=== PATIENT | female | born 1950 | race African-American/Black ===

== ENCOUNTER 2017-03-13 08:21 | Inpatient (IN) ==
--- NOTE | 2017-03-09 14:13 | EKG Report ---
Test Performed on : 03/09/2017 2:01:58 PM Test Reason : pat Blood Pressure : / mmHG Vent. Rate : 096 BPM Atrial Rate : 096 BPM P-R Int : 138 ms QRS Dur : 082 ms QT Int : 368 ms P-R-T Axes : 043 -10 043 degrees QTc Int : 464 ms Normal sinus rhythm. Normal ECG No previous ECGs available Confirmed by Donell Sequeira MD ([id number]) on 03/09/2017 8:00:07 PM
[2017-03-09 15:38] LABS: HEMATOCRIT 27.2 % (37.0-47.0); HEMOGLOBIN 8.3 g/dL (12.0-16.0); MCH 25.2 PG (27-31); MCHC 30.5 g/dL (33-37); MCV 82.4 FL (81-99); MPV 9.9 FL (7.4-10.4); RBC 3.3 XMIL (4.2-5.4)
[2017-03-09 15:51] LABS: INR 1.05; PROTIME 11.1 Seconds (9.2-11.7); PTT 29.8 Seconds (22.0-36.0)
[2017-03-09 16:25] LABS: AGAP 15; BUN 10 mg/dL (8-22); CALCIUM 9.2 mg/dL (8.8-10.2); CHLORIDE 103 mmol/L (98-107); COSMO 281; POTASSIUM 3.3 mmol/L (3.5-5.1); SODIUM 142 mmol/L (136-145); TCO2 24 mmol/L (25-35)
[2017-03-13] MEDS ORDERED: PEPCID ONE (09:08)
[2017-03-13] MEDS ORDERED: KEFZOL 1 GM/D5W 1 GM/50 ML IVPB ONE (09:09)
[2017-03-13] MEDS ORDERED: REGLAN ONE (09:09)
[2017-03-13] MEDS ORDERED: LR 1,000 ML ONE ×2 (09:09→09:48)
[2017-03-13 11:31] LABS: URINE MICRO REVIEW NEEDED? NO; URINE SOURCE CATH
[2017-03-13 11:37] LABS: BILIRUBIN URINE NEGATIVE (NEGATIVE); BLOOD URINE NEGATIVE (NEGATIVE); COLOR YELLOW; GLUCOSE URINE NEGATIVE (NEGATIVE); LEUKOCYTES URINE NEGATIVE (NEGATIVE); NITRITE URINE NEGATIVE (NEGATIVE); PH URINE 7.5; PROTEIN URINE NEGATIVE (NEGATIVE); SP GRAVITY URINE 1.014; TURBIDITY URINE CLEAR (CLEAR); UROBILINOGEN URINE NORMAL (NORMAL)
[2017-03-13 11:39] LABS: UR EPITHELIAL CELLS <10 /HPF (<10); URINE BACTERIA NEGATIVE /HPF; URINE RBC <10 /HPF (<10); URINE WBC <10 /HPF (<10)
[2017-03-13] MEDS ORDERED: FENTANYL ONE (13:52)
[2017-03-13] MEDS ORDERED: VERSED ONE (13:53)
[2017-03-13] MEDS ORDERED: DIPRIVAN 1% ONE (13:54)
[2017-03-13] MEDS: MORPHINE ONE ×2 (14:00→14:22)
[2017-03-13] MEDS ORDERED: MORPHINE ONE ×2 (14:06→14:20)
[2017-03-13] MEDS ORDERED: NS 1,000 ML ONE (14:15)
[2017-03-13] MEDS ORDERED: PHENERGAN PO PRN (14:24)
[2017-03-13] MEDS ORDERED: PHENERGAN PR PRN (14:24)
[2017-03-13] MEDS ORDERED: B & O 15A SUPP PR PRN (14:24)
[2017-03-13] MEDS ORDERED: KEFZOL 1 GM/D5W 1 GM/50 ML IVPB IV SCH (14:24)
[2017-03-13] MEDS ORDERED: DITROPAN PO PRN (14:24)
[2017-03-13] MEDS ORDERED: LABETALOL IV PRN (14:24)
[2017-03-13] MEDS ORDERED: SODIUM CHLORIDE 0.9% INJ PRN (14:24)
[2017-03-13] MEDS ORDERED: BENADRYL LIQUID PO PRN (14:24)
[2017-03-13] MEDS ORDERED: ZOFRAN IV PRN (14:24)
[2017-03-13] MEDS ORDERED: PHENERGAN IV PRN (14:24)
[2017-03-13] MEDS ORDERED: TYLENOL PO PRN (14:24)
[2017-03-13] MEDS ORDERED: BENADRYL IV PRN (14:24)
[2017-03-13] MEDS ORDERED: NEOSTIGMINE ONE (14:28)
[2017-03-13] MEDS ORDERED: ZOFRAN ONE (14:28)
[2017-03-13] MEDS ORDERED: XYLOCAINE-MPF 2% ONE (14:29)
[2017-03-13] MEDS ORDERED: ROBINUL ONE (14:29)
[2017-03-13] MEDS ORDERED: DECADRON ONE (14:29)
[2017-03-13] MEDS ORDERED: STERILE WATER INJ. ONE (14:29)
[2017-03-13] MEDS ORDERED: QUELICIN (DOSE) ONE (14:29)
[2017-03-13] MEDS ORDERED: LR 2,000 ML ONE (14:29)
[2017-03-13] MEDS ORDERED: NORCURON ONE (14:29)
[2017-03-13] MEDS ORDERED: OFIRMEV 1000 MG/ISOTONIC SOLN 1,000 MG/100 ML BOTTLE ONE (14:29)
[2017-03-13] MEDS: MORPHINE IV PRN ×2 (16:11→21:35)
[2017-03-13] MEDS: NS 1,000 ML IV SCH (16:34)
[2017-03-13] MEDS: KEFZOL 1 GM/D5W 1 GM/50 ML IVPB IV SCH (19:44)
[2017-03-13] MEDS: PERIDEX MT SCH (21:38)
[2017-03-13] MEDS: COLACE PO SCH (21:38)
[2017-03-14] MEDS: NS 1,000 ML IV SCH ×2 (02:03→09:41)
[2017-03-14] MEDS: KEFZOL 1 GM/D5W 1 GM/50 ML IVPB IV SCH (02:06)
[2017-03-14] MEDS: NORCO-7.5 PO PRN ×2 (02:06→04:44)
[2017-03-14 05:57] LABS: HEMATOCRIT 25.4 % (37.0-47.0); HEMOGLOBIN 7.7 g/dL (12.0-16.0); MCH 25.2 PG (27-31); MCHC 30.3 g/dL (33-37); MCV 83.3 FL (81-99); MPV 9.9 FL (7.4-10.4); RBC 3.05 XMIL (4.2-5.4)
[2017-03-14 06:05] LABS: AGAP 12; BUN 8 mg/dL (8-22); CALCIUM 8.3 mg/dL (8.8-10.2); CHLORIDE 105 mmol/L (98-107); COSMO 283; POTASSIUM 3.8 mmol/L (3.5-5.1); SODIUM 142 mmol/L (136-145); TCO2 25 mmol/L (25-35)
[2017-03-14] MEDS ORDERED: HUMULIN R SUBQ SCH (07:00)
[2017-03-14 07:28] VITALS: BP 154/71
[2017-03-14] MEDS ORDERED: ALPHAGAN 0.2% OPHTH SOLN BOTH EYES SCH (09:00)
[2017-03-14] MEDS ORDERED: CRESTOR PO SCH (09:00)
[2017-03-14] MEDS ORDERED: GLUCOPHAGE PO SCH (09:00)
[2017-03-14] MEDS: PERIDEX MT SCH (09:41)
--- NOTE | 2017-03-14 09:54 | PROGRESS NOTE ---
DATE: 03/14/2017 SUBJECTIVE: Ms. Dunham reports a good night overnight. She had some discomfort, but it is controlled with pain medications. OBJECTIVE: Vital Signs: Temperature 98.7 degrees, pulse 67, blood pressure 154/71. There was recorded urine output of 3 liters. General: No acute distress. Abdomen: Appropriately tender. Not distended. The incisions are clean, dry, and intact and all port sites and infraumbilical incision. Genitourinary: Bladder is nontender to palpation. PERTINENT LABS: White cell count of 5000, hematocrit 25. Creatinine of 1. ASSESSMENT AND PLAN: A 67-year-old female with a very large renal masses, status post right robotic nephrectomy. She is doing well. She was educated on postoperative care and was cleared for discharge by me. 1. Discharge home once she voids and ambulates. 2. Home with prescriptions for [place] 7.5 (number 25). 3. I will see her in the clinic in 1 week to review pathology results and check her wound. cc: Mario Parekh MD
[2017-03-14] MEDS: COLACE PO SCH (09:56)
[2017-03-14] MEDS ORDERED: XALATAN 0.005% OPH SOLN BOTH EYES SCH (21:00)
--- NOTE | 2017-03-15 21:46 | OPERATIVE NOTE ---
PROCEDURE DATE: 03/13/2017 SURGEON: Mario Parekh MD PREOPERATIVE DIAGNOSIS: Large right renal mass. PRIMARY PROCEDURES: Right robotic assisted laparoscopic nephrectomy. INDICATIONS: A 67-year-old female who presented with abdominal pain and had imaging performed revealing a 15 cm solid enhancing renal mass concerning for malignancy. She presents for definitive intervention. FINDINGS: Extremely large and vascular collateral structures, adequate hemostasis at conclusion of the case. OPERATION IN DETAIL: After obtaining informed consent, patient was brought to the operating room. Perioperative antibiotics and general endotracheal anesthesia were administered. She was placed in modified right flank position with upper and lower extremities appropriately padded. A 16- German Berger catheter was introduced and the bladder was drained. She was prepped and draped sterile fashion. We made a small stab incision in her umbilicus with a 15 blade and I introduced Veress needle connected to saline-filled syringe. Positive drop test was confirmed and aspiration of fluid in syringe revealed no evidence of GI contents or blood. We then insufflated her abdomen to 15 mmHg peritoneal pressure. Following that, we marked our trocar sites in the standard nephrectomy fashion. Bovie electrocautery was used to incise the skin. Camera trocar was introduced and abdominal cavity was examined. She did not have evidence of significant abdominal adhesions and the rest of the trocars were placed under direct vision. We then docked the robot after she was turned in a more of a proper flank position. We began by identifying ascending colon and incising white line of Toldt, though it was very distorted secondary to the huge mass. The colon was reflected medially exposing duodenum, which was also reflected. At that point, inferior vena cava was visualized. I began by trying to dissect around the lower pole of the kidney. There was a large number of very big collateral vessels with some of them draining directly into the vena cava. Those were carefully cauterized with bipolar electrocautery. The lower pole of the kidney was mobilized. The right ureter was seen. We then placed the kidney on anterior traction and dissected toward the hilum. I eventually was able to visualize the right renal vein and right renal artery behind it. A vessel loop was placed around the right renal vein. We then used Endo TRISTON stapler with a vascular load to control the renal vein, followed by another vascular load to control the renal artery. Subsequent to that, the kidney was lifted yet a bit more anteriorly and dissection continued towards the superior pole. Once again, a larger number of collateral vessels was seen. Hence, dissection had to be done meticulously. We freed the kidney up then superiorly and it was finally freed. I spared the adrenal gland, as the mass was mainly involving the lower pole. Plus, with the size and vascularity of the collateral circulation, I was concerned about bleeding in the adrenal area. We then decreased pneumoperitoneal pressure around the hilar area as well as in the general operative field there was no evidence of active bleeding. The robot was undocked and infraumbilical certified pharmacist assistant trocar port was extended toward the pubis. Given the size of the mass and the incision ended up being approximately 12 cm. Dissection extended up the subcutaneous tissue, fascia and eventually through peritoneum. The mass was removed and submitted to Pathology for examination. We then copiously irrigated the wound. #2 PDS looped suture was used to close the fascia in a running fashion. This was followed by irrigation of the wound. 0 Vicryl suture was used for subcutaneous tissues. 4-0 Monocryl suture was used for subcuticular closure of the infraumbilical incision as well as the trocar sites. Dermabond skin adhesive was then applied over the incisions. She was extubated and taken to PACU for further recovery. ESTIMATED BLOOD LOSS: 200 mL. COMPLICATIONS: None. DISPOSITION: To PACU and subsequently floor for observation with Berger catheter to gravity drainage. cc: Mario Parekh MD
== END 2017-03-14 10:28 | disposition home or self-care (01) ==
LOC: 4N 08:21 → OPS 08:21 → EDSTATUS 11:00 → OBSVTOIN 14:49
PROVIDERS: ADMIT Urology; ATTEND Urology

== ENCOUNTER 2019-12-07 09:55 | Inpatient (IN) ==
--- NOTE | 2019-12-01 11:03 | EKG Report ---
Test Performed on : 12/01/2019 10:58:08 AM Test Reason : pat Blood Pressure : / mmHG Vent. Rate : 090 BPM Atrial Rate : 090 BPM P-R Int : 136 ms QRS Dur : 074 ms QT Int : 348 ms P-R-T Axes : 044 -31 050 degrees QTc Int : 425 ms Normal sinus rhythm. Left axis deviation Abnormal ECG When compared with ECG of 09-MAR-2017 14:01, No significant change was found Confirmed by Sánchez KUHN, Mau Fenton ([id number]) on 12/01/2019 2:36:20 PM
[2019-12-01 11:14] LABS: HEMATOCRIT 30.7 % (37.0-47.0); HEMOGLOBIN 9.3 g/dL (12.0-16.0); MCH 25.5 PG (27-31); MCHC 30.3 g/dL (33-37); MCV 84.1 FL (81-99); MPV 9.8 FL (7.4-10.4); RBC 3.65 XMIL (4.2-5.4); RDW 17.8 % (11.5-14.5); WBC 6.65 X1000 (4.8-10.8)
[2019-12-01 12:00] LABS: BUN 30 mg/dL (8-22); ESTIMATED GFR > 60; GLUCOSE 207 mg/dL (70-104); TCO2 25 mmol/L (25-35)
[2019-12-01 12:08] LABS: CHLORIDE 106 mmol/L (98-107); POTASSIUM 4.4 mmol/L (3.5-5.1); SODIUM 142 mmol/L (136-145)
[2019-12-01 12:12] LABS: AGAP 11; COSMO 295
[2019-12-07] MEDS ORDERED: ENTEREG ONE (10:23)
[2019-12-07] MEDS ORDERED: LR 1,000 ML ONE (10:23)
[2019-12-07] MEDS ORDERED: MEFOXIN 2 GM/D5W 2 GM/50 ML IVPB ONE (10:24)
[2019-12-07] MEDS ORDERED: ZEMURON ONE (10:49)
[2019-12-07] MEDS ORDERED: QUELICIN (DOSE) ONE (10:49)
[2019-12-07] MEDS ORDERED: XYLOCAINE-MPF 2% ONE (10:49)
[2019-12-07] MEDS ORDERED: ROBINUL ONE ×2 (10:49→14:12)
[2019-12-07] MEDS ORDERED: FENTANYL ONE (10:52)
[2019-12-07] MEDS ORDERED: DIPRIVAN 1% ONE (10:52)
[2019-12-07] MEDS ORDERED: EXPAREL 1.3% ONE (11:22)
[2019-12-07] MEDS ORDERED: MARCAINE 0.25% PF ONE (11:22)
[2019-12-07 12:29] LABS: URINE SOURCE CATH
[2019-12-07 12:37] LABS: BILIRUBIN URINE NEGATIVE (NEGATIVE); BLOOD URINE NEGATIVE (NEGATIVE); COLOR STRAW; GLUCOSE URINE NEGATIVE (NEGATIVE); KETONE URINE NEGATIVE (NEGATIVE); LEUKOCYTES URINE NEGATIVE (NEGATIVE); NITRITE URINE NEGATIVE (NEGATIVE); PH URINE 5.5; PROTEIN URINE NEGATIVE (NEGATIVE); SP GRAVITY URINE 1.005; TURBIDITY URINE CLEAR (CLEAR); UR EPITHELIAL CELLS <10 /HPF (<10); URINE BACTERIA NEGATIVE /HPF; URINE RBC <10 /HPF (<10); URINE WBC <10 /HPF (<10); UROBILINOGEN URINE NORMAL (NORMAL)
[2019-12-07] MEDS ORDERED: STERILE WATER INJ. ONE ×2 (12:40→13:14)
[2019-12-07] MEDS ORDERED: NORCURON ONE (12:40)
[2019-12-07] MEDS ORDERED: NEO-SYNEPHRINE ONE (13:14)
[2019-12-07] MEDS ORDERED: ALBUMIN 25% ONE (13:24)
[2019-12-07] MEDS ORDERED: ZOFRAN ONE (14:06)
[2019-12-07] MEDS ORDERED: OFIRMEV 1000 MG/ISOTONIC SOLN 1,000 MG/100 ML BOTTLE ONE (14:06)
[2019-12-07] MEDS ORDERED: NEOSTIGMINE ONE (14:12)
[2019-12-07] MEDS: DILAUDID ONE ×4 (14:57→15:17)
--- NOTE | 2019-12-07 15:05 | OPERATIVE NOTE ---
PROCEDURE DATE: 12/07/2019 PREOP DIAGNOSIS: Recurrent renal cell cancer obstructing the right colon. POSTOP DIAGNOSIS: Recurrent renal cell cancer obstructing the right colon. PROCEDURE: Open ileocolonic bypass. SURGEON: Julio César Gonzalez MD. EPIC TRAINER: Dr. العراقي. ANESTHESIA: General endotracheal. INTRAOPERATIVE FINDINGS: Large mass not amenable to resection, is intimately connected to the spine, the inferior vena cava. There are multiple loops of small bowel stuck down there too that were not amenable to resection. The bowel itself appeared to be viable. COMPLICATIONS: None at time dictation. EBL: 50 mL. SPECIMEN REMOVED: None. BRIEF HISTORY: A 69-year-old female who had a recurrent renal cell cancer after nephrectomy. It was obstructing her colon, felt that she needed palliative bypass. The risks, benefits, alternatives for procedure were discussed and documented in chart, all questions answered. DESCRIPTION OF PROCEDURE: After informed consent was obtained patient brought to the operative theatre, transferred op, placed supine position. General endotracheal anesthesia was then performed without complication. Formal time-out was then performed confirming patient and procedure. At that time anesthesia did a TAP block. We then prepped, draped patient in sterile fashion. Dr. العراقي did assist with the entirety of the case. His presence was crucial to completion of the case. We then made a standard midline incision to enter into the abdomen . Upon entering this we found the right colon. It was already mobilized from a previous colonic resection. It was free and mobile but it was connected intimately on the posterior surface to this mass that was gone all the way down to the retroperitoneum. We did meticulous dissection to evaluate the anatomy and we noticed the terminal ileum was also going back into the mass, was intimately connected it, the duodenum and the retrohepatic. Long segment of the ileum was involved in this. It was not amenable to resection without causing a lot of harm. The colon itself appeared to be viable. We ran the bowel several times and got our anatomy oriented. After much discussion we elected do a palliative ileocolonic bypass. We found a piece of the ileum, brought it up to the transverse colon distal to the obstructing mass at the ascending colon and formed a [id number] anastomosis using silk and Vicryl. There was a good patent lumen at the completion. We then irrigated out the abdomen and then closed the fascia with a running loop PDS started on either side. We did place an NG tube and confirmed it was in place and left it in place during the operation. Again, we had much discussion about other options but did not think it would be safe to try to resect this area and again the bowel itself appeared to be viable. The tumor though appeared to be a little bit necrotic. We placed jonah for the skin. The patient tolerated the procedure well. cc: Julio César Gonzalez MD
[2019-12-07] MEDS ORDERED: D5 1/2 NS + KCL 20 MEQ 1,000 ML ONE (15:27)
[2019-12-07] MEDS ORDERED: ZOFRAN IV PRN (15:33)
[2019-12-07] MEDS ORDERED: TYLENOL PR PRN (15:33)
[2019-12-07] MEDS ORDERED: MORPHINE IV PRN (15:36)
[2019-12-07] MEDS: D5 1/2 NS + KCL 20 MEQ 1,000 ML IV SCH (16:04)
[2019-12-07] MEDS ORDERED: APRESOLINE IV PRN (17:08)
[2019-12-07] MEDS: XALATAN 0.005% OPH SOLN BOTH EYES SCH (20:25)
[2019-12-07] MEDS: OFIRMEV 1000 MG/ISOTONIC SOLN 1,000 MG/100 ML BOTTLE IV SCH (20:25)
[2019-12-07] MEDS: HEPARIN SUBQ SCH (20:25)
[2019-12-07] MEDS: MEFOXIN 2 GM/NS 2 GM/50 ML IVPB IV SCH (20:26)
[2019-12-07] MEDS: MORPHINE IV PRN (20:28)
[2019-12-07] MEDS: ZOFRAN IV PRN (20:29)
--- NOTE | 2019-12-07 20:56 | CONSULTATION ---
DATE OF CONSULTATION: 12/07/2019 CONSULTING PHYSICIAN: Dr. Julio César Gonzalez MD PRIMARY CARE PROVIDER: Dr. Elijah Nuno REASON FOR CONSULTATION: Medical management. HISTORY OF PRESENT ILLNESS: Ms. Guru Dunham is a 69-year-old female with a medical history of renal cell carcinoma with metastasis. This has also caused right colon obstruction, which is connected to a mass connected to the spine and inferior vena cava. So today she went and had an open ileocolonic bypass, which was palliative in nature. She had this performed by Dr. Julio César Gonzalez. In the past, she has had a right nephrectomy by Dr. Parekh, and Dr. Richard is her oncologist, which we will give him a consult as well. Postoperative, she states she feels pretty good. There are no complaints right now. Thank you for this consultation. PAST MEDICAL HISTORY: 1. Renal cell carcinoma with METS. 2. Right colon obstruction from the renal cell carcinoma, which is connected to the spine and inferior vena cava. 3. Hypertension. 4. Hyperlipidemia. 5. Diabetes mellitus type 2. 6. Glaucoma. SURGICAL HISTORY: 1. Right nephrectomy by Dr. Parekh. 2. Abdominal retroperitoneal biopsy. 3. Open ileocolonic bypass, which was palliative, by Dr. Gonzalez. SOCIAL HISTORY: Denies tobacco. Quit drinking 1-1/2 months ago but only drank socially before that is what she says and the family says. Denies any illicit drug use. Lives at home with her . , kids. Adult children. Retired [employer]. FAMILY HISTORY: Mother had esophageal cancer. Father had stomach cancer. ALLERGIES: No known drug allergies. She said steroids make her swell. HOME MEDICATIONS: 1. Losartan 50 mg p.o. daily. 2. Crestor 10 mg p.o. daily. 3. Metformin 500 mg p.o. daily. 4. Xalatan 1 drop at night. 5. Alphagan 1 drop 3 times a day. REVIEW OF SYSTEMS: Fourteen point review of systems are complete and all were negative for those mentioned above in HPI. PHYSICAL EXAM: Vital Signs: Temperature 97.3 degrees, heart rate 79, respiratory rate 14, blood pressure 170/73, O2 saturation 100% on 1 L nasal cannula. 5 feet 3 inches tall, 201 pounds with a BMI of 35.6. General: Ms. Guru Dunham is a 69-year-old female. She is in no acute distress. She is able to answer questions appropriately. HEENT: Atraumatic, normocephalic. Pupils equal, round, reactive to light. Extraocular movements intact. Mucous membranes are moist. NECK: Trachea midline.Cardiovascular: S1, S2. Regular rate and rhythm. No rubs, gallops, murmurs. No lower extremity edema. +2 dorsalis and radial pulses. Negative JVD or carotid bruits. Pulmonary: Clear to auscultation, bilateral breath sounds. No accessory muscle use or work of breathing noted. GI: Soft, midline dressing with shadowed oozing, but it is soft, nontender with hypoactive bowel sounds in the left and a nasal NG tube to low wall suction with green drainage.Genitourinary: Berger catheter with clear yellow urine output. Extremities: Moves all extremities equally. Decreased range of motion. Neurologic: A and O x3. Follows commands. Sensory is intact. Skin: Warm, dry, intact. LABORATORY DATA: White blood cells, this is from 12/01/2019. White blood cells 6000 hemoglobin 9.3, hematocrit 30.7. Sodium 142, potassium 4.4, BUN 30, creatinine 1.0, glucose 207. Today, glucose is 122. Calcium 10.0. Urinalysis today is negative. IMAGING: No imaging today. She had a EKG on the and it was normal sinus rhythm, rate 90, QTc was 425. The last chest CT was on the of this month. Several pulmonary nodules compatible with metastatic disease. On the there was a body scan, multiple joint degenerative uptake. On the she had abdominal retroperitoneal biopsy and the 10/19/2019, abdominal pelvic CT advanced carcinoma of the hepatic flexure with massive retroperitoneal adenopathy on the right and additional disease of the subhepatic space on the right, may relate to an adrenal metastasis. A new nodule in the left lobe is also likely a metastasis. ASSESSMENT AND PLAN: 1. Renal cell carcinoma with metastasis, followed by Dr. Richard. Will reconsult him. 2. Right colon obstruction from the renal cell carcinoma. It is connected to the spine and inferior vena cava, now status post palliative open ileocolonic bypass. Incision with shadow on the dressing. She has got a NG tube. Pain control, LEAD PAINTER, and she is being followed by Dr. Julio César Gonzalez, who did the surgery today. So, today is day of surgery. 3. Hypertension. We will do p.r.n. hydralazine for now since she is NPO except for ice chips. 4. Hyperlipidemia. Hold statin. 5. Diabetes mellitus type 2. We will do pattern blood glucoses, sliding scale insulin. Check hemoglobin A1c in the morning. 6. Glaucoma. Continue eye drops. 7. Deep venous thrombosis prophylaxis with SCDs. Dictated by COCO Smith for Eliseo Willard MD cc: COCO Smith MD Edwin K. Matthews, MD Matthew L. Figh, MD I agree with the consult note dictated. I evaluated the patient at bedside. Her family is also present. Ms. Dunham is 69 years old lady with h/o HTN, non insulin dependent diabetes who was admitted for surgical palliative resection of renal cell carcinoma. However, she only underwent ileo-colic anastomosis due to anatomic difficulty. I will give her PRN medication for HTN and insulin for diabetes and once her oral intake and kidney function remains stable, I will resume oral medications. I discussed with her about monitoring her for post operative complications including pneumonia, urine infection and I answered all of her questions. Vitals: Afebrile, not tachycardic. Physical: Air entry bilaterally equal. No wheeze rhonci or crackles. Abdomen: incision site slightly tender, no bowel sounds. Berger is present. MTDD
[2019-12-08] MEDS: MORPHINE IV PRN ×5 (01:02→22:11)
[2019-12-08] MEDS: HUMULIN R SUBQ SCH ×4 (01:28→23:41)
[2019-12-08] MEDS: OFIRMEV 1000 MG/ISOTONIC SOLN 1,000 MG/100 ML BOTTLE IV SCH ×3 (03:50→16:33)
[2019-12-08] MEDS: ZOFRAN IV PRN ×2 (03:50→12:49)
[2019-12-08] MEDS: D5 1/2 NS + KCL 20 MEQ 1,000 ML IV SCH ×2 (04:26→16:33)
[2019-12-08] MEDS: MEFOXIN 2 GM/NS 2 GM/50 ML IVPB IV SCH ×2 (04:26→11:09)
[2019-12-08] MEDS: HEPARIN SUBQ SCH ×2 (06:01→14:00)
--- NOTE | 2019-12-08 06:42 | GENERAL SURGERY PROGRESS NOTE ---
DATE: 12/08/2019 SUBJECTIVE: Patient says she is doing okay. She is not sick to her stomach at this point. She has not passed gas. OBJECTIVE: Vital Signs: Patient is currently afebrile. Her vital signs are stable. General: No acute distress. Cardiovascular: Regular rate and rhythm. Lungs: Grossly clear. Abdomen: Soft, slightly distended. Dressing intact, bowel sounds hypoactive. LABORATORY: Reviewed from yesterday. ASSESSMENT AND PLAN: A 69-year-old female status post palliative bypass of recurrent obstructing renal cell cancer (ileocolonic) for renal cell cancer that is obstructing her right colon. Postoperative state. At this time, she seems to be doing okay. I think she is going to have a little bit of a postoperative ileus. We will keep the NG tube in place. We will try to encourage mobilization. We will await return of bowel function. We have SCDs ordered. She is supposed to start getting heparin. We will give her antibiotics for another 24 hours total and keep her on IV fluids. She is on Entereg and morphine. I did consult the hospitalists for medical management. I appreciate their help and I have consulted Dr. Richard, who is her oncologist. cc: MD Eliseo Fontaine MD
[2019-12-08 07:52] LABS: HEMOGLOBIN A1C 6.1 % (4.8-6.0)
[2019-12-08 07:54] LABS: AGAP 6; ALB/GLOB RATIO 1.3; ALBUMIN 3.5 g/dL (3.5-5.0); ALKALINE PHOSPHATASE 64 U/L (32-104); BUN 9 mg/dL (8-22); CALCIUM 8.4 mg/dL (8.8-10.2); CHLORIDE 108 mmol/L (98-107); COSMO 278; CREATININE 0.8 mg/dL (0.5-0.9); ESTIMATED GFR > 60; GLUCOSE 195 mg/dL (70-104); GOT 16 U/L (10-30); GPT 19 U/L (10-36); MAGNESIUM 1.9 mg/dL (1.5-2.7); POTASSIUM 4.6 mmol/L (3.5-5.1); SODIUM 137 mmol/L (136-145); TCO2 23 mmol/L (25-35); TOTAL BILIRUBIN 0.22 mg/dL (0.20-1.00); TOTAL PROTEIN 6.3 g/dL (6.3-8.3)
[2019-12-08 07:55] LABS: BASO# 0.02 X1000 (0.0-0.2); BASO% 0.3 % (0.0-0.8); EOS# 0.01 X1000 (0.0-0.7); EOS% 0.1 % (0.0-10.0); HEMATOCRIT 31.5 % (37.0-47.0); HEMOGLOBIN 9.4 g/dL (12.0-16.0); LYMPH# 0.71 X1000 (1.2-3.4); LYMPH% 9.3 % (20.5-51.1); MCH 25.1 PG (27-31); MCHC 29.8 g/dL (33-37); MONO# 0.38 X1000 (0.11-0.59); MPV 10.3 FL (7.4-10.4); NEUT# 6.53 X1000 (1.4-6.5); NEUT% 85.3 % (42.2-75.2); PLT 255 X1000 (130-400); RBC 3.75 XMIL (4.2-5.4); RDW 18.2 % (11.5-14.5); WBC 7.65 X1000 (4.8-10.8)
[2019-12-08] MEDS ORDERED: COZAAR PO SCH (09:00)
[2019-12-08] MEDS ORDERED: GLUCOPHAGE PO SCH (09:00)
[2019-12-08] MEDS: ALPHAGAN 0.2% OPHTH SOLN BOTH EYES SCH ×3 (09:15→23:41)
[2019-12-08] MEDS: CRESTOR PO SCH (09:16)
[2019-12-08] MEDS: ENTEREG PO SCH ×2 (09:16→22:11)
[2019-12-08] MEDS ORDERED: INJECTAFER 750 MG in NS 250 ML IV ONE (09:47)
[2019-12-08] MEDS ORDERED: BENADRYL IV ONE (09:48)
--- NOTE | 2019-12-08 13:40 | HEMO/ONC CONSULTATION ---
DATE: 12/08/2019 REASON FOR CONSULTATION: This is a known patient of ours for the care of a renal cell carcinoma and recent metastasis. HISTORY OF PRESENT ILLNESS: Ms. Guru Dunham is a 69-year-old female with a medical history of renal cell carcinoma with metastasis. It was most recently discovered that it caused a right colon obstruction, which is connected to a mass connected to the spine and inferior vena cava. The patient came in on the per Dr. Gonzalez to remove the mass. He ended up doing an open ileocolonic bypass, which is palliative in nature due to the complexity of the connected mass. The patient had a right nephrectomy in March of [address] Parekh for renal cell carcinoma. Since the patient's nephrectomy, we have been following her in the office with scans and for anemia. The patient's latest scan showed several pulmonary nodules compatible with metastatic disease. PAST MEDICAL HISTORY: 1. Renal cell carcinoma with metastasis. 2. Right colon obstruction from the renal cell carcinoma, which is connected to the spine and the inferior vena cava. 3. Hypertension. 4. Hyperlipidemia. 5. Diabetes mellitus type 2. 6. Glaucoma. PAST SURGICAL HISTORY: Right nephrectomy by Dr. Parekh 2016. Abdominal retroperitoneal biopsies November 2019. Open ileocolonic bypass which was palliative by Dr. Gonzalez November 2019. SOCIAL HISTORY: The patient denies tobacco. States she drinks alcohol socially; has not had a drink in 1 to 2 months. ALLERGIES: No known drug allergies. HOME MEDICATIONS: Losartan, Crestor, metformin, Xalatan, Alphagan. REVIEW OF SYSTEMS: The patient denies any pain or complaints this morning. All review of systems are negative. PHYSICAL EXAMINATION: Vital Signs: Temperature 98.6 degrees, pulse rate 88, respiratory rate 16, blood pressure 146/69, O2 saturation 100% on 2 L via nasal cannula. She is in 7/10 abdominal pain. General: She is in no acute distress. HEENT: Sclerae is anicteric. PERRLA. Oral mucosa is normal. Cardiovascular: Normal S1, S2. Heart rate and rhythm regular. Respiratory: Lung sounds are clear to auscultation. Normal respiratory effort. Gastrointestinal: Abdomen is soft. Midline dressing in place, nontender to slight palpation. Hypoactive bowel sounds heard. The patient has NG tube in place to wall suction. Green drainage noted. : Patient has Berger catheter in place. Urine is clear. Extremities: No lower extremity edema noted. Neurological: A and O x3. Follows commands appropriately. No focal motor deficits noted. Skin: Warm, dry and intact. No petechiae, ecchymosis, or rashes noted. LABORATORY DATA: WBC 7.65, hemoglobin 9.4, hematocrit 31.5, platelet count 255,000, ANC 6.53. Creatinine 0.8, calcium 8.4. ASSESSMENT AND PLAN: 1. Renal cell carcinoma with metastasis. We will continue to follow her outpatient. 2. Right colon obstruction from renal cell carcinoma metastasis. The patient is recovering from ileocolonic bypass, which was palliative. Continue the patient's pain control. She is being followed by Dr. Gonzalez. We will continue to follow her once she gets out of the hospital. 3. Deep venous thrombosis prophylaxis with sequential compression devices. 4. Anemia. The patient was found to be anemic last week in our office. We have provided her 1 dose of intravenous iron on 11/29/2019; we are going to give her a second dose today of intravenous Injectafer. Dictated by COCO Hernandez for Logan Richard MD cc: MD Eliseo Hayes MD
[2019-12-08] MEDS: XALATAN 0.005% OPH SOLN BOTH EYES SCH (23:40)
[2019-12-09] MEDS: MORPHINE IV PRN ×4 (02:58→21:29)
[2019-12-09] MEDS: HEPARIN SUBQ SCH ×4 (02:58→21:29)
--- NOTE | 2019-12-09 05:53 | GENERAL SURGERY PROGRESS NOTE ---
DATE: 12/09/2019 SUBJECTIVE: Patient seems to be doing okay. She has not passed any gas, but she has not been sick to her stomach. Her NG tubes had minimal output. OBJECTIVE: Vital Signs: Patient is currently afebrile. Her vital signs are stable. General: No acute distress. Cardiovascular: Regular rate and rhythm. Lungs: Grossly clear. Abdomen: Soft. Appropriately tender. There are some hypoactive bowel sounds. ASSESSMENT AND PLAN: A 69-year-old female postoperative day #2 from open palliative bypass of recurrent obstructing renal cell cancer that is blocking her right colon. Postoperative state at this time. She seems to be doing okay. We will clamp her NG tube and let her try some clears. We will continue routine postoperative care. I appreciate the hospitalist's help. cc: MD Eliseo Fontaine MD
[2019-12-09] MEDS ORDERED: CHLORASEPTIC SPRAY MT PRN (06:03)
[2019-12-09] MEDS: HUMULIN R SUBQ SCH ×4 (06:28→22:20)
--- NOTE | 2019-12-09 07:11 | PROGRESS NOTE ---
DATE: 12/08/2019 SUBJECTIVE: Ms Dunham denies any complaints. She continues to have minimal output through NG tube. She denies any chest pain, shortness of breath, or cough. She denies any vomiting. She was a little nauseous. PHYSICAL EXAMINATION: VITALS: Temperature 97.7 degrees, pulse 95, respiratory rate 19, blood pressure 150/70 saturating 100% on 2 L nasal cannula. LUNGS: Air entry bilaterally equal. No wheeze, rhonchi, crackles.Cardiovascular: S1, S2 normal. Not tachycardic. No murmur or gallop. Abdomen: Soft. Midline laparotomy scar with mild tenderness. No bowel sounds. EXTREMITIES: No lower extremity edema. She is able to move all extremities spontaneously. GENERAL: She is alert and oriented x3. A family member is at bedside. LABS: Suggestive of hemoglobin of 9.4, WBC 7.6, platelet of 255,000, chloride of 108, carbon dioxide 23, BUN 9, creatinine 0.8, blood glucose 185. No microbiological or imaging data. ASSESSMENT: 1. Postoperative day 1 after palliative open ileocolic bypass due to recurrent right renal cell carcinoma with metastasis. 2. Essential hypertension. 3. Noninsulin dependent diabetes mellitus. PLAN: I will resume patient's home medications when she is able to take by mouth. She is on intravenous fluids. I will keep her on intravenous hydralazine as needed and sliding scale insulin. Oncology team is planning to give intravenous iron. We will continue to follow. cc: Eliseo Willard MD
[2019-12-09 07:14] LABS: BASO# 0.01 X1000 (0.0-0.2); BASO% 0.2 % (0.0-0.8); EOS# 0.01 X1000 (0.0-0.7); EOS% 0.2 % (0.0-10.0); HEMATOCRIT 31.7 % (37.0-47.0); HEMOGLOBIN 9.3 g/dL (12.0-16.0); LYMPH# 0.64 X1000 (1.2-3.4); LYMPH% 13.7 % (20.5-51.1); MCH 24.9 PG (27-31); MCHC 29.3 g/dL (33-37); MCV 84.8 FL (81-99); MONO# 0.47 X1000 (0.11-0.59); MONO% 10.1 % (1.7-9.3); NEUT# 3.53 X1000 (1.4-6.5); NEUT% 75.8 % (42.2-75.2); PLT 246 X1000 (130-400); RBC 3.74 XMIL (4.2-5.4); RDW 17.8 % (11.5-14.5); WBC 4.66 X1000 (4.8-10.8)
[2019-12-09 07:53] LABS: AGAP 8; ALB/GLOB RATIO 1.1; ALBUMIN 3.4 g/dL (3.5-5.0); ALKALINE PHOSPHATASE 70 U/L (32-104); BUN 5 mg/dL (8-22); CALCIUM 8.5 mg/dL (8.8-10.2); CHLORIDE 107 mmol/L (98-107); COSMO 276; CREATININE 0.8 mg/dL (0.5-0.9); ESTIMATED GFR > 60; GLUCOSE 187 mg/dL (70-104); GOT 12 U/L (10-30); GPT 15 U/L (10-36); MAGNESIUM 1.9 mg/dL (1.5-2.7); POTASSIUM 4.6 mmol/L (3.5-5.1); SODIUM 137 mmol/L (136-145); TCO2 22 mmol/L (25-35); TOTAL PROTEIN 6.5 g/dL (6.3-8.3)
[2019-12-09] MEDS: D5 1/2 NS + KCL 20 MEQ 1,000 ML IV SCH ×2 (08:11→17:38)
[2019-12-09] MEDS: CRESTOR PO SCH (08:12)
[2019-12-09] MEDS: COZAAR PO SCH (08:12)
[2019-12-09] MEDS: ALPHAGAN 0.2% OPHTH SOLN BOTH EYES SCH ×3 (08:12→21:28)
[2019-12-09] MEDS: ENTEREG PO SCH ×2 (08:12→21:29)
--- NOTE | 2019-12-09 13:27 | HEMO/ONC PROGRESS NOTE ---
DATE: 12/09/2019 SUBJECTIVE: The patient is feeling very well this morning. She denies any complaints. She denies any significant pain. She has no nausea or vomiting. She has not passed gas yet. OBJECTIVE: Vital Signs: Temperature 98.9 degrees, pulse rate 104, respiratory rate 14, blood pressure 148/71, O2 saturation 96% on room air. She is in 0/10 pain. General: The patient appears in no acute distress. HEENT: Sclerae is anicteric. PERRLA. Oral mucosa is slightly dry. Cardiovascular: Normal S1, S2. Tachycardic rate and rhythm at this time. Respiratory: Lung sounds are clear. Normal respiratory effort. Abdomen: Soft. Midline laparotomy scar with mild tenderness. No bowel sounds. Extremities: No lower extremity edema noted. Neurological: Alert and oriented x3. LABORATORY DATA: WBCs 4.66, hemoglobin 9.3, hematocrit 31.7, platelet count 246,000, ANC 3.53. Creatinine 0.8. ASSESSMENT AND PLAN: 1. Renal cell carcinoma with metastasis. We will follow up with the patient as an outpatient and determine further management after discharge. 2. Right colon obstruction from renal cell carcinoma metastasis. The patient is recovering from her ileocolonic bypass. Keep the patient's pain under control. She is being followed by Dr. Gonzalez. We will continue follow-up after discharge. 3. Deep venous thrombosis prophylaxis with sequential compression devices. 4. Anemia. We have provided the patient 1 more dose of IV iron. She tolerated that well. The patient also has a component of acute blood loss anemia due to recent surgery. We will continue to monitor that as an outpatient. Dictated by COCO Hernandez for Logan Richard MD cc: MD Eliseo Hayes MD [id number]
[2019-12-09] MEDS ORDERED: APRESOLINE IV PRN (14:21)
--- NOTE | 2019-12-09 18:50 | PROGRESS NOTE ---
DATE: 12/09/2019 INTERVAL HISTORY: Her NG tube was clamped and she was started on clear liquids. She has been tolerating clear liquids well. According to the patient, she had a small bowel movement as well. She denies new complaints, except mild abdominal pain. She states she was able to work with Physical Therapy today. VITALS: Temperature 98.7 degrees, pulse 100, respiratory 16, blood pressure 165/78, saturating 94% on room air. PHYSICAL EXAMINATION: Not in acute distress. Oral cavity is moist. Air entry bilaterally equal. No wheeze or rhonchi. She has mild inspiratory crackles. S1, S2 normal. Tachycardic. No murmur or gallop.Abdomen: Soft. She has a midline laparotomy scar. Mild tenderness. Hypoactive bowel sounds. No lower extremity edema. She is alert and oriented x3. There are multiple family members at bedside. LABORATORY AND DIAGNOSTIC DATA: Labs suggestive of hemoglobin of 9.2, platelets 246,000. Her chloride is 107, BUN 5, creatinine 0.8. Her blood glucose has been well controlled in the 150 range. Microbiology, no data. No new imaging. ASSESSMENT AND PLAN: 1. Essential hypertension. Start the patient on her home losartan, and I will give intravenous hydralazine as needed if systolic blood pressure is more than 160 mmHg. 2. Hyperlipidemia. Continue home rosuvastatin. 3. History of noninsulin-dependent diabetes mellitus. Her blood glucose has been within acceptable range and most readings have been less than 220. I will keep her on sliding scale insulin. 4. 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 Her primary tumor was unresectable, so she underwent palliative ileocolic bypass. Her Berger catheter was removed. NG tube is clamped. Today is postoperative day two. Surgical team on board. 5. History of chronic anemia. Patient received intravenous iron. Hematology/Oncology team on board. DISPOSITION: The patient remains in the hospital for postoperative course management. Plan of care was discussed with the patient and her family members. They were allowed to ask questions and I answered them. cc: Eliseo Willard MD
[2019-12-09] MEDS: XALATAN 0.005% OPH SOLN BOTH EYES SCH (21:28)
[2019-12-10] MEDS: MORPHINE IV PRN ×2 (05:23→10:23)
[2019-12-10] MEDS: HEPARIN SUBQ SCH ×3 (05:24→21:35)
[2019-12-10] MEDS: D5 1/2 NS + KCL 20 MEQ 1,000 ML IV SCH (05:27)
[2019-12-10] MEDS: HUMULIN R SUBQ SCH ×4 (06:57→21:37)
[2019-12-10 07:22] LABS: BASO# 0.01 X1000 (0.0-0.2); BASO% 0.2 % (0.0-0.8); EOS# 0.02 X1000 (0.0-0.7); EOS% 0.4 % (0.0-10.0); HEMATOCRIT 30.1 % (37.0-47.0); HEMOGLOBIN 8.9 g/dL (12.0-16.0); IMM GRAN# 0.02 X1000 (0.0-0.04); IMM GRAN% 0.4 % (0.0-0.5); LYMPH# 0.76 X1000 (1.2-3.4); LYMPH% 15.9 % (20.5-51.1); MCH 24.8 PG (27-31); MCHC 29.6 g/dL (33-37); MCV 83.8 FL (81-99); MONO# 0.65 X1000 (0.11-0.59); MONO% 13.6 % (1.7-9.3); MPV 10.6 FL (7.4-10.4); NEUT# 3.33 X1000 (1.4-6.5); NEUT% 69.5 % (42.2-75.2); PLT 248 X1000 (130-400); RBC 3.59 XMIL (4.2-5.4); RDW 17.7 % (11.5-14.5); WBC 4.79 X1000 (4.8-10.8)
[2019-12-10 08:25] LABS: AGAP 10; ALB/GLOB RATIO 1.1; ALBUMIN 3.3 g/dL (3.5-5.0); ALKALINE PHOSPHATASE 72 U/L (32-104); BUN 5 mg/dL (8-22); CALCIUM 8.6 mg/dL (8.8-10.2); CHLORIDE 101 mmol/L (98-107); COSMO 266; CREATININE 0.8 mg/dL (0.5-0.9); ESTIMATED GFR > 60; GLUCOSE 173 mg/dL (70-104); GOT 10 U/L (10-30); GPT 12 U/L (10-36); MAGNESIUM 1.6 mg/dL (1.5-2.7); POTASSIUM 4.2 mmol/L (3.5-5.1); SODIUM 132 mmol/L (136-145); TCO2 21 mmol/L (25-35); TOTAL BILIRUBIN 0.22 mg/dL (0.20-1.00); TOTAL PROTEIN 6.3 g/dL (6.3-8.3)
[2019-12-10] MEDS: ALPHAGAN 0.2% OPHTH SOLN BOTH EYES SCH ×3 (08:44→21:29)
[2019-12-10] MEDS: COZAAR PO SCH (08:44)
[2019-12-10] MEDS: ENTEREG PO SCH ×2 (08:44→21:31)
[2019-12-10] MEDS: CRESTOR PO SCH (08:44)
--- NOTE | 2019-12-10 10:14 | GENERAL SURGERY PROGRESS NOTE ---
DATE: 12/10/2019 Ms. Dunham is now 3 days after her bowel bypass. She is afebrile, heart rate 100, blood pressure 167/66. Her abdomen is quite. She says she has been burping some. She says the NG tube has not been worked up since yesterday. Her intake was registered at 2875, output 400. She denies any flatus. White count 4800, hemoglobin 8.9, hematocrit 30. Chemistry is okay. Sugars are okay. 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 cc: MD Elieso Nielson MD
[2019-12-10] MEDS: TYLENOL PO PRN ×2 (17:10→21:47)
--- NOTE | 2019-12-10 17:25 | PROGRESS NOTE ---
DATE: 11/09/2019 INTERVAL HISTORY: No acute events overnight. SUBJECTIVE: Ms. Dunham denies chest pain, shortness of breath, cough. She denies nausea, vomiting. She has not been passing gas. Her abdominal pain is well controlled. VITALS: Temperature of 99.6, pulse 99, respiratory rate 19, blood pressure 168/70, saturating 99% on room air. PHYSICAL EXAMINATION: General: Not in acute distress. HEENT: Oral cavity is moist. Lungs: Air entry bilaterally equal. No wheeze, rhonchi, or crackles. Cardiovascular: S1, S2 normal. Tachycardic. No murmur or gallop. Abdomen: Soft. Midline laparotomy scar with only minimal tenderness. No bowel sounds. Extremities: No lower extremity edema. Genitourinary: She does not have a urine catheter. Neurologic: She is alert and oriented x3. Input and output: Suggested no bowel movements. LABS: Suggestive of WBC of 4000, hemoglobin 8.9, platelet 248. BUN 5, creatinine 0.8, blood glucose 124. Microbiology: No data. IMAGING: No new data. ASSESSMENT AND PLAN: 1. Essential hypertension. Continue home losartan and increase dose tomorrow. Continue intravenous hydralazine for systolic blood pressure more than 160 mmHg. 2. Hyperlipidemia. Continue home rosuvastatin. 3. History of eeh-hrvyvxr-txejbwzde diabetes mellitus. Her blood work has been within acceptable range. I will keep her on sliding-scale insulin. Most readings have been less than 220. 4. 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 Today is postoperative day 3. Continue nasogastric tube and diet management as per surgical team. Continue intravenous morphine as needed for pain and oral acetaminophen. Continue heparin subcutaneous for deep venous thrombosis prophylaxis. She is also on alvimopan. DISPOSITION: We are going to monitor the patient on the surgical floor. Plan of care discussed with the patient. She was allowed to ask questions. All of her questions were answered. cc: Eliseo Willard MD
[2019-12-10] MEDS: XALATAN 0.005% OPH SOLN BOTH EYES SCH (21:34)
[2019-12-11] MEDS: D5 1/2 NS + KCL 20 MEQ 1,000 ML IV SCH ×4 (00:14→13:42)
[2019-12-11] MEDS: HEPARIN SUBQ SCH ×3 (05:52→22:18)
--- NOTE | 2019-12-11 07:10 | GENERAL SURGERY PROGRESS NOTE ---
DATE: 12/11/2019 Temp is 99.6 degrees, heart rate 103, blood pressure 170/71. She had 3110 in, 800 out. She had 600 out her NG tube. There is bilious NG drainage this morning. She does admit to having a small bowel movement this morning. In view of her significant NG output, bilious in nature, I decided to leave her on NG suction today. Perhaps by tomorrow, she can have it removed, if her bowels continue to move satisfactorily. cc: MD Eliseo Nielson MD
[2019-12-11] MEDS: HUMULIN R SUBQ SCH ×4 (07:20→22:57)
[2019-12-11 07:50] LABS: BASO# 0.01 X1000 (0.0-0.2); BASO% 0.2 % (0.0-0.8); EOS# 0.04 X1000 (0.0-0.7); EOS% 0.8 % (0.0-10.0); HEMATOCRIT 30.7 % (37.0-47.0); HEMOGLOBIN 9.2 g/dL (12.0-16.0); IMM GRAN# 0.02 X1000 (0.0-0.04); IMM GRAN% 0.4 % (0.0-0.5); LYMPH# 0.74 X1000 (1.2-3.4); LYMPH% 15.4 % (20.5-51.1); MCH 24.9 PG (27-31); MONO% 14.6 % (1.7-9.3); MPV 10.3 FL (7.4-10.4); NEUT# 3.29 X1000 (1.4-6.5); NEUT% 68.6 % (42.2-75.2); PLT 256 X1000 (130-400); RDW 17.9 % (11.5-14.5)
[2019-12-11 08:01] LABS: AGAP 10; ALB/GLOB RATIO 1.1; ALBUMIN 3.3 g/dL (3.5-5.0); ALKALINE PHOSPHATASE 73 U/L (32-104); BUN 6 mg/dL (8-22); CALCIUM 8.9 mg/dL (8.8-10.2); CHLORIDE 103 mmol/L (98-107); COSMO 275; CREATININE 0.8 mg/dL (0.5-0.9); ESTIMATED GFR > 60; GLUCOSE 166 mg/dL (70-104); GOT 11 U/L (10-30); GPT 13 U/L (10-36); MAGNESIUM 1.7 mg/dL (1.5-2.7); POTASSIUM 4.2 mmol/L (3.5-5.1); SODIUM 137 mmol/L (136-145); TCO2 24 mmol/L (25-35); TOTAL PROTEIN 6.3 g/dL (6.3-8.3)
[2019-12-11] MEDS: MORPHINE IV PRN ×3 (10:09→22:22)
[2019-12-11] MEDS: COZAAR PO SCH (10:11)
[2019-12-11] MEDS: ALPHAGAN 0.2% OPHTH SOLN BOTH EYES SCH ×3 (10:11→22:17)
[2019-12-11] MEDS: ENTEREG PO SCH ×2 (10:12→22:18)
[2019-12-11] MEDS: CRESTOR PO SCH (10:12)
--- NOTE | 2019-12-11 15:55 | PROGRESS NOTE ---
DATE: 12/11/2019 INTERVAL HISTORY: No acute events overnight. Considering her high NG tube output, the surgical team had recommended to keep the NG tube in. VITALS: Temperature of 98.5 degrees, pulse 93, respiratory rate 18, blood pressure 147/72, saturating 98% on room air. REVIEW OF SYSTEMS: Ms. Dunham denies any chest pain, shortness of breath. She only has occasional cough which is nonproductive. She denies any more nausea or vomiting, though she has an NG tube. She had a small bowel movement. She denies any abdominal pain. PHYSICAL EXAMINATION: Oral cavity is moist. Lungs: Air entry bilaterally equal. No wheeze, rhonchi, or crackles. Cardiovascular: S1, S2 normal. No gallop. Abdomen: Soft. Midline laparotomy scar. Mild tenderness. I could not appreciate bowel sounds. No lower extremity edema. She is alert and oriented x3. LABS: Suggestive of WBC of 4.8, hemoglobin 9.2, platelets 256,000. BUN suggestive of 6, creatinine 0.8, blood glucose 160. ASSESSMENT AND PLAN: 1. Essential hypertension. Continue higher dose of losartan and intravenous hydralazine for systolic blood pressure more than 160 mmHg. 2. Continue rosuvastatin for hyperlipidemia. 3. Continue sliding scale insulin for noninsulin-dependent diabetes mellitus. Her blood glucoses are within acceptable range. 4. 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 Today is postoperative day 4. Continue nasogastric tube and diet management as per surgical team, intravenous morphine as needed for pain with oral acetaminophen, heparin subcutaneously for deep venous thrombosis prophylaxis, and alvimopan. 5. Disposition. Continue to monitor patient on the surgical floor. Plan of care discussed with the patient. She was allowed to ask questions. Her questions have been answered. cc: Eliseo Willard MD
[2019-12-11] MEDS: XALATAN 0.005% OPH SOLN BOTH EYES SCH (22:18)
[2019-12-11] MEDS ORDERED: BLISTEX MEDICATED BERRY LIP BALM TOP PRN (23:07)
[2019-12-12] MEDS: HEPARIN SUBQ SCH ×3 (05:56→21:10)
[2019-12-12] MEDS: HUMULIN R SUBQ SCH ×3 (06:49→17:31)
--- NOTE | 2019-12-12 07:33 | GENERAL SURGERY PROGRESS NOTE ---
DATE: 12/12/2019 SUBJECTIVE: Patient seems to be doing okay. She has had a bowel movement. OBJECTIVE: Vital Signs: Patient is currently afebrile. Her vital signs are stable. General: No acute distress. Cardiovascular: Regular rate and rhythm. Lungs: Grossly clear. Abdomen: Soft, nondistended. Some hypoactive bowel sounds. NG tube in place. ASSESSMENT AND PLAN: A 69-year-old female, status post palliative diverting ileal colonic bypass. Postoperative state: At this time, she is very sluggish in return of bowel function, but given the amount of manipulation I am not surprised. We will clamp her nasogastric tube again and let her do clear liquids. She has had bowel movements. We will continue to follow her. I appreciate the hospitalists help. cc: MD Eliseo Fontaine MD
[2019-12-12] MEDS: MORPHINE IV PRN ×3 (08:35→21:09)
[2019-12-12 09:10] LABS: AGAP 12; BUN 8 mg/dL (8-22); CALCIUM 8.8 mg/dL (8.8-10.2); CHLORIDE 102 mmol/L (98-107); COSMO 278; CREATININE 0.9 mg/dL (0.5-0.9); ESTIMATED GFR > 60; GLUCOSE 140 mg/dL (70-104); POTASSIUM 3.6 mmol/L (3.5-5.1); SODIUM 139 mmol/L (136-145); TCO2 25 mmol/L (25-35)
[2019-12-12] MEDS: ALPHAGAN 0.2% OPHTH SOLN BOTH EYES SCH ×3 (09:53→21:10)
[2019-12-12] MEDS: COZAAR PO SCH (09:54)
[2019-12-12] MEDS: CRESTOR PO SCH (09:54)
[2019-12-12] MEDS: ENTEREG PO SCH ×2 (09:54→21:09)
[2019-12-12] MEDS: TYLENOL PO PRN ×2 (13:13→21:09)
[2019-12-12] MEDS: D5 1/2 NS + KCL 20 MEQ 1,000 ML IV SCH ×2 (15:50→15:52)
[2019-12-12] MEDS: XALATAN 0.005% OPH SOLN BOTH EYES SCH (21:10)
--- NOTE | 2019-12-12 22:40 | PROGRESS NOTE ---
DATE: 12/12/2019 INTERVAL HISTORY: No acute events overnight subjective. VITALS: Temperature of 98.2 degrees, pulse 96, respiratory rate 21, blood pressure 160/70, saturating 97% on room air. SUBJECTIVE: Ms. Dunham denies any new complaints. She denies any chest pain, shortness of breath. She is occasionally coughing but not to an extent to cause any distress. She is not bringing up any sputum. She had a small bowel movement yesterday, is passing gas. NG tube has been clamped, and she has been started on liquid diet. OBJECTIVE: HEENT: Oral cavity is moist. She has an NG tube. Lungs: Air entry bilaterally equal. No wheeze, rhonchi, crackles. Cardiovascular: S1, S2. No murmur or gallop. Abdomen: Soft. Midline laparotomy scar. Active bowel sounds. Extremities: No lower extremity edema. Neurologic: She is alert and oriented x3. LABORATORY DATA: Suggestive of no CBC today. BMP suggestive of potassium of 3.6, BUN 8, creatinine 0.9, blood glucose 148. ASSESSMENT AND PLAN: 1. Essential hypertension. Continue 100 mg of losartan and as needed intravenous hydralazine; rosuvastatin for hyperlipidemia. 2. Continue sliding scale insulin for noninsulin dependent diabetes mellitus. Her blood sugars have been within acceptable range. 3. History of metastatic renal cell carcinoma and right colon obstruction from renal cell carcinoma status post palliative ileocolic bypass. Today is postoperative day 5. Continue NG tube, diet and management as per surgical team. She is on intravenous morphine as needed for pain along with oral acetaminophen. 4. Continue heparin subcutaneous for DVT prophylaxis. DISPOSITION: Continue to monitor patient on surgical floor. I encouraged her to perform physical activity, which she has been doing. Plan of care discussed with the patient. Her questions have been answered. Thank you for allowing us to take part in this patient's care. We will continue to follow. cc: Eliseo Willard MD
[2019-12-13] MEDS: HUMULIN R SUBQ SCH ×5 (02:57→20:29)
[2019-12-13] MEDS: MORPHINE IV PRN ×2 (02:58→18:13)
[2019-12-13] MEDS: HEPARIN SUBQ SCH ×3 (05:43→20:22)
[2019-12-13] MEDS: D5 1/2 NS + KCL 20 MEQ 1,000 ML IV SCH ×3 (05:44→23:24)
[2019-12-13 07:20] LABS: BASO# 0.01 X1000 (0.0-0.2); BASO% 0.1 % (0.0-0.8); EOS# 0.09 X1000 (0.0-0.7); EOS% 1.2 % (0.0-10.0); HEMATOCRIT 30.2 % (37.0-47.0); IMM GRAN# 0.03 X1000 (0.0-0.04); IMM GRAN% 0.4 % (0.0-0.5); LYMPH# 0.96 X1000 (1.2-3.4); LYMPH% 12.8 % (20.5-51.1); MCH 25.1 PG (27-31); MCHC 29.8 g/dL (33-37); MCV 84.4 FL (81-99); MONO# 0.86 X1000 (0.11-0.59); MONO% 11.4 % (1.7-9.3); NEUT# 5.57 X1000 (1.4-6.5); NEUT% 74.1 % (42.2-75.2); PLT 264 X1000 (130-400); RBC 3.58 XMIL (4.2-5.4); RDW 18.4 % (11.5-14.5); WBC 7.52 X1000 (4.8-10.8)
--- NOTE | 2019-12-13 07:53 | GENERAL SURGERY PROGRESS NOTE ---
DATE: 12/13/2019 SUBJECTIVE: Patient seems to be doing well. She tolerated her tube being clamped. She has passed gas. She has had a bowel movement. OBJECTIVE: Vital Signs: Patient is currently afebrile. Her vital signs are stable. General: No acute distress. Cardiovascular: Regular rate and rhythm. Lungs: Grossly clear. Abdomen: Soft, appropriately tender. Bowel sounds auscultated. Incision with dressing intact. ASSESSMENT AND PLAN: A 69-year-old female status post palliative ileocolonic bypass for obstructing mass. Postop state. At this time we will advance to a full liquid diet, remove her nasogastric tube. We will put her on diet to be advanced as tolerated. Hopefully, we are looking at her being able to be discharged here soon. We will continue to follow. I appreciate the hospitalist's help. cc: MD Keely Fontaine MD
[2019-12-13] MEDS: CRESTOR PO SCH (09:21)
[2019-12-13] MEDS: ENTEREG PO SCH ×2 (09:21→20:22)
[2019-12-13] MEDS: ALPHAGAN 0.2% OPHTH SOLN BOTH EYES SCH ×3 (09:21→20:22)
[2019-12-13] MEDS: COZAAR PO SCH (09:22)
--- NOTE | 2019-12-13 13:54 | HEMO/ONC PROGRESS NOTE ---
DATE: 12/13/2019 SUBJECTIVE: Ms Dunham states she is feeling much better today. She is several days out from her surgery. She is having bowel movements. She is passing gas. She states she is eating a semisolid diet and doing very well with it. Her appetite is good. She is ready to advance her diet. She denies any complaints of pain. She has no nausea or vomiting. There have been no significant events since we have seen her last. OBJECTIVE: Vital Signs: Temperature 98.4 degrees, pulse rate 86, respiratory rate 14, blood pressure 150/63, O2 saturation 98% on room air, she is in 0/10 pain. General: The patient is in no acute distress. HEENT: Sclerae is anicteric. PERRLA. Oral mucosa is normal. Cardiovascular: Regular rate and rhythm. Normal S1, S2. Respiratory: Lung sounds are clear to auscultation. Normal respiratory effort. Gastrointestinal: Abdomen is soft, tender at her incision site. Incision site is intact. Bowel sounds are present. Extremities: No lower extremity edema noted. Neurological: Alert and oriented x3. No focal motor deficits noted. LABORATORY DATA: WBC 7.52, hemoglobin 9.0, hematocrit 30.2, platelet count 264,000, magnesium 1.8. ASSESSMENT AND PLAN: 1. Renal cell carcinoma with metastasis. Surgery is continuing to follow the patient. Her nasogastric tube has been removed. She has been advanced to a full liquid diet. She is hoping to advance further if she is doing well. Surgeon looks to be discharging her soon. 2. Right colon obstruction from renal cell carcinoma metastasis. The patient has recovered well from the ileocolonic bypass. This is day 6 from her surgery. Patient's pain has remained under control. 3. Deep venous thrombosis prophylaxis. The patient is on subcu heparin and sequential compression devices. 4. Anemia. We provided the patient with 1 dose of intravenous iron. Her hemoglobin and hematocrit have continued to improve. Iron will take approximately 4 to 12 weeks to make a difference in her hemoglobin and hematocrit. The patient did have some blood loss with surgery. She will continue to improve from here. We will sign off. Please call with any questions. Dictated by COCO Hernandez for Logan Richard MD cc: MD Keely Hayes MD MTDD
[2019-12-13] MEDS ORDERED: BLISTEX MEDICATED BERRY LIP BALM TOP PRN (15:02)
[2019-12-13] MEDS: XALATAN 0.005% OPH SOLN BOTH EYES SCH (20:22)
--- NOTE | 2019-12-13 20:37 | PROGRESS NOTE ---
DATE: 12/13/2019 SUBJECTIVE: The patient is resting comfortably in bed. She states that she feels good. She tolerated a clear liquid diet today without any difficulty. She states that she also walked with physical therapy up and down the hallway earlier today. OBJECTIVE: Vital Signs: Temperature 98.9 degrees, blood pressure 143/65, heart rate 87, respirations 12, O2 saturation 96% on room air. General: This is a chronically ill-appearing elderly female lying in bed in no acute distress. Heart: S1, S2 normal. Regular rate and rhythm. Lungs: Equal air entry bilaterally. No wheezing. No rales. No rhonchi. Abdomen: Positive bowel sounds. Soft, nontender, nondistended. Extremities: No edema, no cyanosis. Neurologic: The patient is alert and oriented x4. LABS: Hemoglobin 9, hematocrit 30, platelets 264,000. Magnesium 1.8. ASSESSMENT AND PLAN: 1. Metastatic renal cell carcinoma and colon obstruction status post palliative ileocolic bypass. The patient is doing well. She is on a clear liquid diet. Her nasogastric tube was removed. Further management as directed by the general surgeon. 2. Hypertension. Improved. Continue on the current antihypertensive regimen. 3. Diabetes mellitus type 2. Stable. Continue on sliding scale insulin. 4. Anemia. Stable. 5. Disposition. Continue with physical therapy. cc: Keely Coy MD MTDD
[2019-12-14] MEDS: HEPARIN SUBQ SCH (05:19)
[2019-12-14] MEDS ORDERED: NORCO-5 PO PRN (05:27)
[2019-12-14] MEDS: HUMULIN R SUBQ SCH (06:35)
--- NOTE | 2019-12-14 06:53 | GENERAL SURGERY PROGRESS NOTE ---
DATE: 12/14/2019 SUBJECTIVE: Patient doing well. She seemed to tolerate her full liquid diet. She is still having bowel movements, passing gas. OBJECTIVE: Vital Signs: The patient is currently afebrile. Her vital signs are stable. General Examination: No acute distress. Cardiovascular: Regular rate and rhythm. Lungs: Grossly clear. Abdomen: Soft. Appropriately tender. Bowel sounds auscultated. ASSESSMENT AND PLAN: A 69-year-old female status post palliative ileocolonic bypass. Postoperative state. At this time, she is doing well. We will advance her to a regular diet. If she seems to tolerate food up until lunch and it is okay with the hospitalist, may consider discharge today. If not, consider discharge in the morning. cc: MD Keely Fontaine MD
[2019-12-14] MEDS: ENTEREG PO SCH (08:27)
[2019-12-14] MEDS: ALPHAGAN 0.2% OPHTH SOLN BOTH EYES SCH (08:27)
[2019-12-14] MEDS: COZAAR PO SCH (08:27)
[2019-12-14] MEDS: CRESTOR PO SCH (08:27)
[2019-12-14 08:29] LABS: AGAP 9; BUN 6 mg/dL (8-22); CALCIUM 8.5 mg/dL (8.8-10.2); CHLORIDE 103 mmol/L (98-107); COSMO 277; CREATININE 0.8 mg/dL (0.5-0.9); ESTIMATED GFR > 60; GLUCOSE 164 mg/dL (70-104); POTASSIUM 4.3 mmol/L (3.5-5.1); SODIUM 138 mmol/L (136-145); TCO2 26 mmol/L (25-35)
[2019-12-14] MEDS ORDERED: PERIDEX MT SCH (09:00)
[2019-12-14 11:40] VITALS: BP 137/53
--- NOTE | 2019-12-14 13:23 | HEMO/ONC PROGRESS NOTE ---
DATE: 12/14/2019 SUBJECTIVE: Baltazar Dunham is doing very well. She feels good. She is happy to be sitting up in the recliner this morning. She is eating her meals out of bed. She is up and walking about with assistance. She is going to begin a regular diet today. Dr. Gonzalez has stated if she tolerates regular food today, she could be discharged home today or tomorrow morning. The patient states she is having bowel movements and passing gas. OBJECTIVE: Vital Signs: Temperature 98.8 degrees, pulse rate 87, respiratory rate 18, blood pressure 137/53, O2 saturation 98% on room air. She is in 0/10 pain. PHYSICAL EXAMINATION: General: The patient is in no acute distress. Cardiovascular: Normal S1, S2. Heart rate and rhythm regular. Respiratory: Lung sounds are clear to auscultation. Normal respiratory effort. Abdomen: Positive bowel sounds. Soft, nondistended. Incision site intact and dressed. Extremities: No lower extremity edema noted. Neurological: Alert and oriented x3. No focal motor deficits noted. LABORATORY DATA: No CBC today. Creatinine 0.8, glucose 164, calcium 8.5. ASSESSMENT AND PLAN: 1. Renal cell carcinoma with metastasis causing colon obstruction, status post palliative ileocolic bypass. The patient has been doing very well since her surgery. She is passing gas. She is having bowel movements. Her nasogastric tube has been removed. She has had no nausea or vomiting. She has advanced well on her diet. She is going to attempt a regular diet today. Dr. Gonzalez has stated per hospitalist, the patient may go home after lunch if she tolerates her diet. Otherwise, in the morning will be fine with him. 2. Deep venous thrombosis prophylaxis. Continue the patient on subcutaneous heparin and sequential compression devices. The patient is up and walking around at this time. 3. Anemia. The patient has recently had 2 doses of intravenous iron. Her hemoglobin and hematocrit continue to improve over time. We will continue to monitor her numbers as an outpatient. 4. Disposition: We will sign off at this time. The patient will follow up in the clinic in 1 to 2 weeks. Dictated by COCO Hernandez for Logan Richard MD cc: MD Keely Hayes MD
--- NOTE | 2019-12-16 23:55 | DISCHARGE SUMMARY ---
ADMISSION DATE: 12/07/2019 DISCHARGE DATE: 12/14/2019 ADMITTING DIAGNOSIS: Recurrent renal cell cancer causing colonic obstruction. DISCHARGE DIAGNOSIS: Status post open ileocolonic bypass. ADMITTING PHYSICIAN: Julio César Gonzalez. CONSULTATIONS: The hospitalist for medical management and Dr. Richard for Oncology. PROCEDURE: On 12/07/2019, the patient underwent open ileocolonic bypass. BRIEF HISTORY AND COURSE OF STAY: A 69-year-old female with a recurrent renal cell cancer that was causing obstruction to her colon. It was felt that she needed palliative bypass. The risks, benefits, and alternatives were discussed with the patient. She was admitted, underwent previously described procedure. Her postoperative course was essentially uneventful. We did have the hospitalist follow the patient, given her multiple medical comorbidities, and we also consulted Dr. Richard, given the fact that she is known to him and has renal cell cancer. Again, her postoperative course was uncomplicated. She was advanced slowly over the course of several days to a regular diet, was having bowel movements, passing gas, and tolerating her diet. Her pain was controlled. It was felt it would be safe to be able to discharge her home on 12/14/2019. All arrangements were made. DISPOSITION: Home. FOLLOWUP: The patient was told to follow up myself and Dr. Richard. PRESCRIPTIONS: The patient was given a prescription for pain medicine. cc: MD Keely Fontaine MD
== END 2019-12-14 14:34 | disposition home or self-care (01) | DRG 330 ==
LOC: SURHOLD 09:55 → 4N 13:33
PROVIDERS: ADMIT Internal Medicine; ATTEND Surgery